=== PATIENT | female | born 1950 | race Caucasian/White ===

== ENCOUNTER 2018-08-16 15:14 | Observation (INO) | payer MEDICARE, OTHER, SELFPAY ==
[2018-08-16 15:17] VITALS: BP 148/88; PULSE 105; RESP 17; TEMP 36.1; O2SAT 99; BMI 24.7
--- NOTE | 2018-08-16 15:29 | EKG12_ITS ---
Test Reason : DIZZINESS Blood Pressure : / mmHG Vent. Rate : 094 BPM Atrial Rate : 094 BPM P-R Int : 134 ms QRS Dur : 072 ms QT Int : 394 ms P-R-T Axes : 052 063 061 degrees QTc Int : 492 ms Sinus rhythm with occasional Premature ventricular complexes Possible Left atrial enlargement Nonspecific ST abnormality Abnormal ECG Confirmed by IDALIA LAI, YVONNE ([id number]), online editor DORYS SCHAFER ([id number]) on 08/19/2018 3:11:22 PM Referred By: Confirmed By:YVONNE FRIEDMAN MD
--- NOTE | 2018-08-16 15:29 | CT_ITS ---
STUDY: CT BRAIN WITHOUT CONTRAST REASON FOR EXAM: Female, 68 years old. Dizziness and sudden onset headache RADIATION DOSAGE (If Supplied By Facility): CTDIvol = ( 60.81 ) mGy, DLP = ( 1176.33 ) mGycm TECHNIQUE: Transaxial CT imaging of the brain was performed without administration of intravenous contrast material. Individualized dose optimization techniques were used for this CT. COMPARISON: None. FINDINGS: Normal soft tissue structures. Normal calvarium. There is mild cerebral atrophy with widening of the extra-axial spaces and ventricular dilatation. There are areas of decreased attenuation within the white matter tracts of the supratentorial brain, consistent with microvascular disease changes. Normal basal ganglia and thalami. Normal brainstem. Normal cerebellum. There is no intracranial hemorrhage. There are no findings of an acute ischemic infarction. Normal visualized paranasal sinuses. CT/Brain/Head without Contrast IMPRESSION: Chronic involutional changes of the brain. Electronically Signed: Nelson Benito DO at 16:15 EDT Tel , Service support ,
--- NOTE | 2018-08-16 15:32 | ED.VISSUMM ---
- ER Visit Summary Date of Service: 08/16/18 Chief Complaint: Dizziness History of Present Illness: The patient is a 68 F presenting with dizziness. She states it started last night. She describes it as a spinning sensation that is worse when she sits or stands. She also has the spinning sensation without change in position. She denies other complaints. She denies numbness or weakness. Denies speech or vision changes. Denies confusion. Denies chest pain or shortness of breath. Denies fever or recent illness. Physical Examination: Vitals are stable. Patient is afebrile. Alert no acute distress. HEENT exam is unremarkable. Neck is supple. Lungs are clear and equal bilaterally. Heart is regular rate and rhythm. Abdomen is soft nontender nondistended. Extremities are unremarkable. Skin is warm and dry. No focal neurologic deficit. NIH 0 Remainder of exam is unremarkable. Emergency Department Course and Treatment: Patient was given Valium p.o. EKG is sinus with PVCs rate of 94. CBC, chemistries unremarkable other than potassium 3.4. Troponin is negative. CT head shows chronic changes. Patient continues to have vertigo in the ED. She attempted to ambulate to the bathroom and had to hold onto a wall to avoid falling. Discussed with the hospitalist for observation. Disposition: Observation Impression: Vertigo This note was generated with [employer] dictation software. It may contain incorrect words, spelling, and punctuation that were not noted in review of the chart prior to signing ED Disposition - Plan for ED Patient: Chief Complaint: Dizziness Referrals: Enrique Fischer III, MD [Primary Care Provider] -
[2018-08-16 15:54] LABS: Absolute Lymphocyte Count 1.63 X10^3/ul (0.83-4.51); Absolute Neutrophil Count 8.1 X10^3/uL (2.0-7.7); Basophil# 0.04 X10^3/uL; Basophil% 0.4 % (0-1); Hematocrit 44.2 % (37-47); Hemoglobin 14.7 g/dl (12.0-15.0); Lymphocyte # 1.63 X10^3/ul (4.0); Lymphocyte % 15.7 % (19-41); Mean Corp Hgb Conc 33.3 g/gl (32-36); Mean Corpuscular Hgb 31.2 pg (27.0-32.0); Mean Corpuscular Volume 93.8 fL (81-99); Monocyte# 0.63 X10^3/uL; Monocyte% 6.1 % (0-10); Neutrophil # 8.08 X10^3/uL (2.7-7.7); Neutrophil % 77.7 % (47-70); Platelet Count 293 K/mm3 (150-450); RBC Distribution Width CV 12.7 % (11.6-14.6); RBC Distribution Width SD 43.6 fl (35.1-43.9); Red Blood Count 4.71 M/mm3 (4.2-5.4); White Blood Count 10.4 K/mm3 (4.4-11.0)
[2018-08-16 15:55] LABS: POSITIVE COUNT NO; POSITIVE DIFFERENTIAL NO; POSITIVE MORPHOLOGY NO
[2018-08-16] MEDS: diazePAM 2 MG Tablet PO (16:01)
[2018-08-16 16:08] LABS: Anion Gap 13 (5-15); BUN 8 mg/dL (7-18); BUN/Creat Ratio 15.9 RATIO (10-20); Calcium,Total 8.8 mg/dL (8.5-10.1); Chloride 103 mmol/L (98-107); EST Glomerular Filtration Rate 130 mL/min (>60); Est Glom Filt Rate - Afr Amer 158 mL/min (>60); Estimated Creatinine Clearance 43.77 ml/min; Glucose 105 mg/dL (74-106); Potassium 3.4 mmol/L (3.5-5.1); Sodium Level 137 mmol/L (136-145)
[2018-08-16 16:30] VITALS: BP 163/86; BP 168/78; BP 170/96; PULSE 100; PULSE 103
[2018-08-16 17:09] VITALS: BP 138/71; PULSE 87; RESP 13; O2SAT 97
--- NOTE | 2018-08-16 17:51 | PCM.HP.STD ---
<Kevin Avilez - Last Filed: 08/16/18 17:51> Problem List (1) BPPV (benign paroxysmal positional vertigo) Status: Acute (2) HTN (hypertension) Status: Chronic History of Present Illness Date of Admission: 08/16/18 Chief Complaint: dizziness The patient is a 68 year old F who presented to the ER with c/o dizziness that began last night. It started suddenly at home before she got into bed, and she felt she should sleep it off. She did get a nights sleep however when she woke up, as soon as she went to move she became dizzy again. She has spent most of the day laying still in bed as this made it less severe. When she should stand up or sit down it would get worse. Turning her head makes it worse. She has no focal weakness, facial droop, slurred speech or headache. She received valium in the ER with only minimal improvement. She has no hx of stroke. Her dad may have had TIAs but she is not sure. She has a hx of HTN. 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 She later had her water tested and it did not have elevated lead. She has 1-2 drinks nightly. [] Past Medical History Past Medical History (Chronic Problems): Chronic Problems HTN (hypertension) (Chronic) Allergies cinnamon Allergy (Verified 08/16/18 15:16) Other lisinopril Allergy (Verified 08/16/18 17:43) cough Home Medications: Ambulatory Orders Medication Instructions Recorded Amlodipine Besylate [Norvasc] 10 mg PO DAILY 08/16/18 Succimer [Dmsa] 5 mg MC MOWEFR 08/16/18 Thyroid Pill 2 gm PO DAILY 08/16/18 traZODone [Desyrel] 25 - 50 mg PO QHS PRN 08/16/18 Surgical History: - - blepharoplasty, neck lift. 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 Drugs: None Review of Systems Constitutional: Denies: Chills, Fever, Weight Change HEENT: Reports: -. Denies: Head Aches, Sinus Congestion, Sinus Drainage Cardiovascular: Denies: Chest Pain, Palpitations Respiratory: Denies: Cough, Shortness of breath at rest, Sputum production Gastrointestinal: Denies: Abdominal Pain, Nausea, Vomiting Genitourinary: Denies: Dysuria Musculoskeletal: Denies: Joint Pain, Joint Tenderness Skin: Denies: Rash, Wounds Neurological: Reports: - - vertigo. Denies: Focal weakness, Numbness, Tingling Psychiatric: Denies: Anxiety, Depression, Homicidal Ideations, Suicidal Ideations Hematologic/ Lymphatic: Denies: Easy Bruising, Easy Bleeding VTE Information - Inpt Only VTE Present on Admission: No VTE Mechan Device Prophylaxis: None VTE Pharm Prophylaxis ordered?: Yes Patient Problems: Active and Suspected Problems BPPV (benign paroxysmal positional vertigo) (Acute) - Physical Exam General: Alert, Oriented x3, Cooperative HEENT: Atraumatic, PERRLA, EOMI, Normocephalic, - - Left gaze lateral nystagmus Neck: Supple, No JVD, Negative Carotid Bruits Lungs: Clear to auscultation, Normal air movement Cardiovascular: Regular rate, No murmurs Abdomen: Bowel Sounds Present, Soft, Non Tender Extremities: No edema, Capillary Refill Less than 3 Seconds Skin: No rashes, No breakdown Musculoskeletal: No Tenderness to Palpation of Joints or Extremities Neurological: Cranial nerves II-XII grossly intact Psych/Mental Status: Normal Affect, Appropriate, Alert and oriented to time, place, person, mood and affect Vital Signs Temp Pulse Resp BP Pulse Ox 96.9 F L 87 13 138/71 H 97 08/16/18 15:17 08/16/18 17:09 08/16/18 17:09 08/16/18 17:09 08/16/18 17:09 Oxygen Delivery Method Room Air Weight: 135 lb 9.349 oz Body Mass Index (BMI) 24.7 Laboratory Tests Past 24 Hrs 08/16/18 08/16/18 15:40 15:40 WBC 10.4 RBC 4.71 Hgb 14.7 Hct 44.2 MCV 93.8 MCH 31.2 MCHC 33.3 RDW 12.7 RDW Differential 43.6 Plt Count 293 MPV 10.0 Immature Gran % (Auto) 0.100 Neut % (Auto) 77.7 H Lymph % (Auto) 15.7 L Wilkinson % (Auto) 6.1 Eos % (Auto) 0.0 Baso % (Auto) 0.4 Absolute Neuts (auto) 8.1 H Absolute Lymphs (auto) 1.63 Total Counted Not Reportable Sodium 137 Potassium 3.4 L Chloride 103 Carbon Dioxide 21.0 Anion Gap 13 BUN 8 Creatinine 0.50 L Estim Creat Clear Calc 43.77 Est GFR (MDRD) Af Amer 158 Est GFR (MDRD) Non-Af 130 BUN/Creatinine Ratio 15.9 Glucose 105 Calcium 8.8 Troponin I < 0.015 Assessment/Plan All Active Problems BPPV (benign paroxysmal positional vertigo) (Acute) 1. Vertigo - likely BPPV. MRI brain MRI head and neck to rule out posterior infarct. Possible fm hx TIAs with father. Hx HTN. No hx vertigo. Continue meclizine and valium prn. Vestibular therapy. 2. HTN - norvasc 3. ? Lead poisoning - per hx, takes DMSA since 1 month ago - her homeopath diagnosed lead poisoning via a hair sample that showed high aluminum and lead levels. Her water was tested and did not have high lead levels. This supplement will be held while she is here. DVT ppx: lovenox DC planning: Likely home tomorrow, This patient was seen by Kevin Avilez PA-C under the supervision of Doctor Koko. <Bam Sutherland F - Last Filed: 08/16/18 18:29> History of Present Illness The patient is a 68 year old F [] Past Medical History Allergies cinnamon Allergy (Verified 08/16/18 15:16) Other lisinopril Allergy (Verified 08/16/18 17:43) cough - Physical Exam Vital Signs Temp Pulse Resp BP Pulse Ox 98.6 F 91 18 159/75 H 100 08/16/18 17:53 08/16/18 17:53 08/16/18 17:53 08/16/18 17:53 08/16/18 17:53 Oxygen Delivery Method Room Air Weight: 131 lb 14.4 oz Body Mass Index (BMI) 24.1 Laboratory Tests Past 24 Hrs 08/16/18 08/16/18 15:40 15:40 WBC 10.4 RBC 4.71 Hgb 14.7 Hct 44.2 MCV 93.8 MCH 31.2 MCHC 33.3 RDW 12.7 RDW Differential 43.6 Plt Count 293 MPV 10.0 Immature Gran % (Auto) 0.100 Neut % (Auto) 77.7 H Lymph % (Auto) 15.7 L Wilkinson % (Auto) 6.1 Eos % (Auto) 0.0 Baso % (Auto) 0.4 Absolute Neuts (auto) 8.1 H Absolute Lymphs (auto) 1.63 Total Counted Not Reportable Sodium 137 Potassium 3.4 L Chloride 103 Carbon Dioxide 21.0 Anion Gap 13 BUN 8 Creatinine 0.50 L Estim Creat Clear Calc 43.77 Est GFR (MDRD) Af Amer 158 Est GFR (MDRD) Non-Af 130 BUN/Creatinine Ratio 15.9 Glucose 105 Calcium 8.8 Troponin I < 0.015 Code Visit Addendum: Dr. Sutherland I personally examined the patient and reviewed the chart. I agree with the above. 68-year-old female with a past medical history significant for hypertension presents to the hospital with a little over 24-hour period of dizziness. She states that she started feeling dizzy last night whenever she would turn her head. It did not matter which direction she turned her head she would just have dizziness where she felt that everything was spinning. She denies any tinnitus, recent upper respiratory infection, or loss of hearing. I was able to perform a modified Orient-Hallpike and did not have any nystagmus in either direction. I was able to get her out of bed and I did walk her around the entire nursing unit and she did not have any episodes of dizziness or difficulty with a walking. On her neuro exam she was not ataxic, Romberg was negative. Can evaluate in the morning after some IV fluids and if she continues to be dizzy can obtain an MRI at that point to further rule out any posterior circulation issues. 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 She states that her blood and hair samples were taken to a [facility] lab in the area. Her water did test normal for lead. We will obtain a CBC in the morning hopefully there will be a peripheral smear. OBSV E&M: 30808 Initial observation care L3
[2018-08-16 17:52] VITALS: BMI 24.1
[2018-08-16 17:53] VITALS: BP 159/75; PULSE 91; RESP 18; TEMP 37; O2SAT 100
[2018-08-16 18:06] VITALS: BMI 24.1
[2018-08-16] MEDS: 0.9% Normal Saline 1,000 ML 100 ML IV (18:41)
[2018-08-16] MEDS: Meclizine HCl 25 MG Tablet PO (19:48)
[2018-08-16] MEDS: amLODIPine 10 MG Tablet PO (19:48)
[2018-08-16 19:51] VITALS: BP 127/69; PULSE 84; RESP 16; TEMP 36.7; O2SAT 97
[2018-08-16] MEDS: traZODone 50 MG Tablet PO (23:53)
[2018-08-17] VITALS: BP 124/70; PULSE 77; RESP 16; TEMP 36.7; O2SAT 96
[2018-08-17] MEDS: 0.9% Normal Saline 1,000 ML 100 ML IV (04:20)
[2018-08-17] MEDS: 0.9% NaCl Peripheral Flush Adult/Peds IV (05:13)
[2018-08-17 05:15] VITALS: BP 129/78; PULSE 78; RESP 16; TEMP 36.9; O2SAT 99
[2018-08-17 08:17] LABS: Absolute Lymphocyte Count 2.27 X10^3/ul (0.83-4.51); Absolute Neutrophil Count 4.6 X10^3/uL (2.0-7.7); Basophil# 0.04 X10^3/uL; Basophil% 0.5 % (0-1); Eosinophil# 0.06 X10^3/uL; Eosinophils% 0.8 % (0-5); Hematocrit 41.8 % (37-47); Hemoglobin 13.5 g/dl (12.0-15.0); Lymphocyte # 2.27 X10^3/ul (4.0); Mean Corp Hgb Conc 32.3 g/gl (32-36); Mean Corpuscular Volume 95.9 fL (81-99); Monocyte% 11.5 % (0-10); Neutrophil # 4.56 X10^3/uL (2.7-7.7); Neutrophil % 58.2 % (47-70); Platelet Count 259 K/mm3 (150-450); RBC Distribution Width SD 45.2 fl (35.1-43.9); Red Blood Count 4.36 M/mm3 (4.2-5.4); White Blood Count 7.8 K/mm3 (4.4-11.0)
[2018-08-17 08:18] LABS: POSITIVE COUNT NO; POSITIVE DIFFERENTIAL NO; POSITIVE MORPHOLOGY NO
[2018-08-17 08:44] LABS: Anion Gap 9 (5-15); BUN 6 mg/dL (7-18); BUN/Creat Ratio 13.6 RATIO (10-20); Calcium,Total 8.5 mg/dL (8.5-10.1); Chloride 110 mmol/L (98-107); Creatinine, Serum 0.44 mg/dL (0.55-1.02); EST Glomerular Filtration Rate 151 mL/min (>60); Est Glom Filt Rate - Afr Amer 183 mL/min (>60); Estimated Creatinine Clearance 43.77 ml/min; Glucose 106 mg/dL (74-106); Potassium 3.8 mmol/L (3.5-5.1); Sodium Level 142 mmol/L (136-145)
[2018-08-17 08:45] VITALS: BP 105/61; PULSE 83; RESP 14; TEMP 36.9; O2SAT 96
[2018-08-17] MEDS: amLODIPine 10 MG Tablet PO (08:51)
[2018-08-17] MEDS: Meclizine HCl 25 MG Tablet PO ×2 (08:51→16:47)
--- NOTE | 2018-08-17 09:35 | MRI_ITS ---
STUDY: MRA OF THE HEAD WITHOUT CONTRAST REASON FOR EXAM: Female, 68 years old. Vertigo since yesterday morning. TECHNIQUE: 3-D lzxo-cs-dueolv (TOF) imaging was performed with MIPs. The study was performed unenhanced. COMPARISON: Prior comparable comparison studies are not available for review at this time. FINDINGS: Normal bilateral petrous carotid arteries. Normal right cavernous carotid artery with a normal supraclinoid bifurcation. Normal left cavernous carotid artery with a normal supraclinoid bifurcation. Normal right A1 segments of the anterior cerebral artery. Normal left A1 segments of the anterior cerebral artery. Normal intact anterior communicating artery (ACOM). Normal bilateral A2 segments of the anterior cerebral arteries. Normal right M1 and M2 segments of the middle cerebral arteries, with a normal M1 bifurcation. Normal left M1 and M2 segments of the middle cerebral arteries, with a normal M1 bifurcation. There is a persistent origin of the right posterior cerebral artery with absence of the P1 segment of the right posterior cerebral artery. There is non-visualization of the left posterior communicating artery (PCOM). Normal bilateral vertebral arteries. Normal basilar artery with a normal basilar bifurcation. The right superior cerebellar artery is visualized. There appears to be occlusion and/or possible thrombosis of the left superior cerebellar artery. There is absence of the right P1 segment of the posterior cerebral arteries with a normal left P1 segment. Normal visualized bilateral P2 and P3 segments of the posterior cerebral arteries. There is no demonstrated aneurysm of the resighini of [place]. There are mild involutional changes of the brain. MRI/MRA Head ONLY without Contrast IMPRESSION: 1. Possible thrombosis of the left superior cerebellar artery. The acuity of this finding is uncertain. 2. No MR evidence for aneurysm. Electronically Signed: Mellisa Spence MD at 16:26 EDT , Service support ,
--- NOTE | 2018-08-17 09:35 | MRI_ITS ---
STUDY: MRA NECK WITH AND WITHOUT CONTRAST REASON FOR EXAM: Female, 68 years old. Vertigo since yesterday morning. TECHNIQUE: 3-D hpxi-st-bmfdor (TOF) imaging was performed in an 1.5 T MRI scanner. 6 ml of Gadavist was administered for the contrast enhanced images. COMPARISON: MRA of the head dated August 17, 2018. FINDINGS: RIGHT CAROTID ARTERIES: Normal right common carotid artery (CCA). There is mild atherosclerotic plaque formation with minimal narrowing of the right carotid bulb. Normal origin of the right internal carotid (ICA) artery without a hemodynamically significant stenosis. Normal visualized cervical portion of the right internal carotid artery. Normal origin of the right external carotid artery (ECA). LEFT CAROTID ARTERIES: Normal left common carotid artery (CCA). There is mild atherosclerotic plaque formation with minimal narrowing of the left carotid bulb. Normal origin of the left internal carotid (ICA) artery without a hemodynamically significant stenosis. Normal visualized cervical portion of the left internal carotid artery. Normal origin of the left external carotid artery (ECA). VERTEBRAL ARTERIES: Normal antegrade flow within the bilateral vertebral artery without a hemodynamically significant stenosis. MRI/MRA Neck WITH and W/O Contrast IMPRESSION: No MRA evidence for hemodynamically significant stenosis, thrombosis or dissection. Electronically Signed: Mellisa Spence MD at 16:43 EDT , Service support ,
--- NOTE | 2018-08-17 09:35 | MRI_ITS ---
STUDY: MRI BRAIN WITHOUT CONTRAST REASON FOR EXAM: Female, 68 years old. Vertigo since yesterday. TECHNIQUE: Standardized multiplanar fat and water weighted pulse sequences were obtained. COMPARISON: CT of the head dated August 16, 2018. FINDINGS: There is mild cerebral atrophy with widening of the extra-axial spaces and ventricular dilatation. There are a limited number of small white matter hyperintensities, distributed throughout the deep white matter tracts of the cerebral hemispheres, consistent with mild chronic white matter ischemic changes. There are apparent foci of restricted diffusion within bilateral basal ganglia. This is best seen on diffusion weighted images #15, 16 and 17. The configuration is somewhat unusual for an acute infarct. Bilateral acute infarcts unfortunately cannot be excluded. There are prominent perivascular spaces (PVS) involving the basal ganglia. Normal thalami. There is no extra-axial fluid accumulation. Normal flow voids within the major intracranial circulation suggesting patency by spin echo criteria. Normal sella turcica, pituitary gland, infundibular stalk, optic chiasm and hypothalamus. Normal tectal plate and pineal gland. Normal midbrain, ludmila and medulla. Normal cerebellum. Normal basal cisterns. Normal bilateral temporal bones. Normal bilateral internal auditory canals. No demonstrated orbital abnormality, within the constraints of a routine brain study. Normal visualized paranasal sinuses. Normal calvarium and skull base. Normal visualized soft tissue structures. Normal visualized upper cervical spine. MRI/Brain without Contrast IMPRESSION: 1. Involutional changes of the brain, as described above. 2. Nonspecific foci of apparent restricted diffusion in the basal ganglia. The configuration is unusual for acute infarct and is bilateral. It is possible this is related to artifact. This apparent restricted diffusion could be unrelated to ischemia but secondary to cytotoxic edema. Is there concern for infection, or recent toxic exposure? N.B. : The above information has been verbally conveyed by Mellisa Spence MD to SAMARIA Crocker, on 08/17/2018 16:33:31 (ET). Electronically Signed: Mellisa Spence MD at 16:38 EDT , Service support ,
[2018-08-17 14:40] VITALS: BP 121/69; PULSE 84; RESP 15; TEMP 36.6; O2SAT 97
--- NOTE | 2018-08-17 17:57 | PCM.PROGNOTE ---
<Kevin Avilez - Last Filed: 08/17/18 17:57> Patient Problems: Active and Suspected Problems BPPV (benign paroxysmal positional vertigo) (Acute) Dizziness (Acute) Subjective: Pts dizziness has improved, however has continued throughout the day. She has been up and ambulating throughout the room without assistance. PRN medications are helping. No focal weakness, slurred speech, headache, facial droop. - Physical Exam General: Alert, Oriented x3, Cooperative HEENT: Atraumatic, PERRLA, EOMI, Normocephalic, - - BL nystagmus more prominent with left gaze Neck: Supple, No JVD, Negative Carotid Bruits Lungs: Clear to auscultation, Normal air movement Cardiovascular: Regular rate, No murmurs Abdomen: Bowel Sounds Present, Soft, Non Tender Extremities: No edema, Capillary Refill Less than 3 Seconds Skin: No rashes, No breakdown Musculoskeletal: No Tenderness to Palpation of Joints or Extremities Neurological: Cranial nerves II-XII grossly intact Psych/Mental Status: Normal Affect, Appropriate, Alert and oriented to time, place, person, mood and affect Vital Signs Temp Pulse Resp BP Pulse Ox 97.9 F 84 15 121/69 H 97 08/17/18 14:40 08/17/18 14:40 08/17/18 14:40 08/17/18 14:40 08/17/18 14:40 Oxygen Delivery Method Room Air Weight: 131 lb 14.4 oz Body Mass Index (BMI) 24.1 Intake and Output for Last 24 Hours 08/15/18 08/16/18 08/17/18 23:59 23:59 23:59 Intake Total 1236 / 1236 522 / 522 Output Total 1200 / 1200 250 / 250 Balance 36 / 36 272 / 272 Laboratory Tests Past 24 Hrs 08/17/18 08/17/18 07:45 07:45 WBC 7.8 RBC 4.36 Hgb 13.5 Hct 41.8 MCV 95.9 MCH 31.0 MCHC 32.3 RDW 13.0 RDW Differential 45.2 H Plt Count 259 MPV 10.0 Immature Gran % (Auto) 0.000 Neut % (Auto) 58.2 Lymph % (Auto) 29.0 Alexander % (Auto) 11.5 H Eos % (Auto) 0.8 Baso % (Auto) 0.5 Absolute Neuts (auto) 4.6 Absolute Lymphs (auto) 2.27 Total Counted Not Reportable Sodium 142 Potassium 3.8 Chloride 110 H Carbon Dioxide 23.0 Anion Gap 9 BUN 6 L Creatinine 0.44 L Estim Creat Clear Calc 43.77 Est GFR (MDRD) Af Amer 183 Est GFR (MDRD) Non-Af 151 BUN/Creatinine Ratio 13.6 Glucose 106 Calcium 8.5 Medical Necessity - Tobacco Use Smoking Status: Former smoker Tobacco Use: Cigarettes Assessment/Plan All Active Problems BPPV (benign paroxysmal positional vertigo) (Acute) Dizziness (Acute) 1. Vertigo - Unusual findings on the MRI/A. Results relayed to neuro. Consult placed. Asa/statin started. Continue prn medications as ordered. 2. HTN - norvasc. stable 3. ? Lead poisoning - per hx, takes DMSA for a hair sample that tested positive by her homeopathic dr. She did not have blood lead levels checked. Water was tested and did not have elevated lead. It is unclear if this is a true diagnosis. This medication has been held. DVT ppx: lovenox DC planning: pending neuro consult. This patient was seen by Kevin Avilez PA-C under the supervision of Doctor Doug. <Mariela Camacho E - Last Filed: 08/18/18 11:04> - Physical Exam Vital Signs Temp Pulse Resp BP Pulse Ox 98.6 F 85 16 144/77 H 96 08/17/18 19:50 08/17/18 19:50 08/17/18 19:50 08/17/18 19:50 08/17/18 19:50 Oxygen Delivery Method Room Air Weight: 131 lb 14.4 oz Body Mass Index (BMI) 24.1 Intake and Output for Last 24 Hours 08/15/18 08/16/18 08/17/18 23:59 23:59 23:59 Intake Total 1236 / 1236 1122 / 1122 Output Total 1200 / 1200 250 / 250 Balance 36 / 36 872 / 872 Laboratory Tests Past 24 Hrs 08/17/18 08/17/18 07:45 07:45 WBC 7.8 RBC 4.36 Hgb 13.5 Hct 41.8 MCV 95.9 MCH 31.0 MCHC 32.3 RDW 13.0 RDW Differential 45.2 H Plt Count 259 MPV 10.0 Immature Gran % (Auto) 0.000 Neut % (Auto) 58.2 Lymph % (Auto) 29.0 Alexander % (Auto) 11.5 H Eos % (Auto) 0.8 Baso % (Auto) 0.5 Absolute Neuts (auto) 4.6 Absolute Lymphs (auto) 2.27 Total Counted Not Reportable Sodium 142 Potassium 3.8 Chloride 110 H Carbon Dioxide 23.0 Anion Gap 9 BUN 6 L Creatinine 0.44 L Estim Creat Clear Calc 43.77 Est GFR (MDRD) Af Amer 183 Est GFR (MDRD) Non-Af 151 BUN/Creatinine Ratio 13.6 Glucose 106 Calcium 8.5 Assessment/Plan Hospitalist Note: I am seeing this patient in conjunction with Kevin Avilez. I independently seen and examined the patient. Progress note above, laboratory data and imaging studies reviewed and I concur with the above treatment and workup plan. Today, patient stated that her dizziness improved but still there. She denied associated nausea vomiting. She has no focal weakness. Her vital signs are stable. - Physical Exam General: Alert, Oriented x3, Cooperative, No apparent distress. HEENT: Atraumatic, PERRLA, EOMI. Neck: Supple, No JVD, Negative Carotid Bruits, Trachea Midline, Thyroid Normal. Lungs: Clear to auscultation, Normal air movement, No rhonchi, No wheeze, No rales. Cardiovascular: Regular rate, Regular Rhythm, Normal S1, Normal S2, PMI Normal. Abdomen: Bowel Sounds Present, Soft, Non Tender, Non-Distended, No Hepato-splenomegaly. Extremities: No clubbing, No cyanosis, No edema Skin: No rashes, No breakdown Neurological: Cranial nerves are intact, no focal deficit. She does have nystagmus. Vital Signs are stable. Assessment and plan: #1 vertigo/dizziness: Initially, attributed to BPPV. CT scan brain without acute findings. MRI brain reported as nonspecific foci in the basal ganglia, bilateral, unusual for acute infarct. MRA of the head reported as possible thrombosis of the left superior cerebellar artery according to the radiologist. MRA of the neck was unremarkable. Plan: Start patient on aspirin, statins, neurology consult. #2 other chronic medical problems: Stable, continue current medications as above. This note was generated with [employer] software. It may contain incorrect words, spelling, and punctuation that were not noted in checking the note before signing. Code Visit OBSV E&M: 20061 Subsequent observation care L2
[2018-08-17] MEDS: Aspirin 81 MG TAB.CHEW PO (18:51)
[2018-08-17 19:50] VITALS: BP 144/77; PULSE 85; RESP 16; TEMP 37; O2SAT 96
[2018-08-17] MEDS: Atorvastatin Calcium 80 MG Tablet PO (22:51)
[2018-08-17] MEDS: traZODone 50 MG Tablet PO (22:51)
[2018-08-18 01:16] VITALS: BP 151/84; PULSE 81; RESP 16; TEMP 36.3; O2SAT 100
--- NOTE | 2018-08-18 08:04 | PCM.CONS.GEN ---
Problem List (1) Dizziness Status: Acute Reason for Consult Date of Consultation: 08/18/18 Reason for Consultation: Dizziness History of Present Illness: The patient is a 68 year old CF with PMH HTN admitted with dizziness. Per patient she started having dizziness around night (08/15/18), worse the next day, worse with moving her head, only improved with laying down and eyes closed, associated with vomiting, but denies any diplopia, speech disturbances, ARBOLEDA, focal motor weakness or sensory loss with the dizziness. Per patient following admission and treating with meclizine her dizziness has improved a lot. Per patient she had h/o chronic hair loss for which she was going to a naturopathy doctor who tested her hair and found that she has high lead and aluminium and started her on DMSA (succimer) which she has been taking. She also complaints of some hearing loss, but denies any tinnitus. She denies any chest pain, fever, or sick contacts. MRI brain done on admission read by Dr. Mellisa Spence reported to show Nonspecific foci of apparent restricted diffusion in the basal ganglia. The configuration is unusual for acute infarct and is bilateral. It is possible this is related to artifact. but on my review MRI brain images appears to be unremarkable. MRA head/neck again read by Dr. 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 The acuity of this finding is uncertain. [] Past Medical History Past Medical History (Chronic Problems): Chronic Problems HTN (hypertension) (Chronic) Allergies cinnamon Allergy (Verified 08/16/18 15:16) Other lisinopril Allergy (Verified 08/16/18 17:43) cough Home Medications: Ambulatory Orders Medication Instructions Recorded Amlodipine Besylate [Norvasc] 10 mg PO DAILY 08/16/18 Succimer [Dmsa] 5 mg [facility] MOWEFR 08/16/18 Thyroid Pill 2 gm PO DAILY 08/16/18 traZODone [Desyrel] 25 - 50 mg PO QHS PRN 08/16/18 Surgical History: - - blepharoplasty, neck lift. 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 Drugs: None Review of Systems Constitutional: Reports: - - complete ROS negative except as documented in HPI Patient Problems: Active and Suspected Problems BPPV (benign paroxysmal positional vertigo) (Acute) Dizziness (Acute) - Physical Exam General: Alert HEENT: Normocephalic Neck: Supple Lungs: Normal air movement Cardiovascular: Normal S1, Normal S2 Abdomen: Bowel Sounds Present Extremities: No cyanosis Musculoskeletal: No Tenderness to Palpation of Joints or Extremities Neurological: - - consious, alert, AoAx3, CN 2-12 grossly intact except bilateral gaze evoked nystagmus, power 5/5 all 4 extremities, Reflexes ++ B/L B/S/T/K/A, gait deferred, no sensory loss, no cerebellar signs on examination at present. Psych/Mental Status: Normal Affect Vital Signs Temp Pulse Resp BP Pulse Ox 97.4 F L 81 16 151/84 H 100 08/18/18 01:16 EST 08/18/18 01:16 EST 08/18/18 01:16 EST 08/18/18 01:16 EST 08/18/18 01:16 EST Oxygen Delivery Method Room Air Weight: 59.829 kg Body Mass Index (BMI) 24.1 Intake and Output for Last 24 Hours 08/16/18 08/17/18 08/18/18 23:59 23:59 22:59 Intake Total 1236 / 1236 1122 / 1122 Output Total 1200 / 1200 250 / 250 Balance 36 / 36 872 / 872 Laboratory Tests Past 24 Hrs 08/18/18 08/18/18 05:20 05:20 Arsenic Pending Lead Pending Pending Mercury Pending Assessment/Plan All Active Problems BPPV (benign paroxysmal positional vertigo) (Acute) Dizziness (Acute) The patient is a 68 year old CF with PMH HTN admitted with dizziness. Per patient she started having dizziness around night (08/15/18), worse the next day, worse with moving her head, only improved with laying down and eyes closed, associated with vomiting, had some imbalance due to dizziness but denies any diplopia, speech disturbances, ARBOLEDA, focal motor weakness, sensory loss or falls with the dizziness. Per patient following admission and treating with meclizine her dizziness has improved a lot. Per patient she had h/o chronic hair loss for which she was going to a naturopathy doctor who tested her hair and found that she has high lead and aluminium and started her on DMSA (succimer) which she has been taking. She also complaints of some hearing loss, but denies any tinnitus. She denies any chest pain, fever, or sick contacts. MRI brain done on admission read by Dr. Mellisa Spence reported to show Nonspecific foci of apparent restricted diffusion in the basal ganglia. The configuration is unusual for acute infarct and is bilateral. It is possible this is related to artifact. but on my review MRI brain images appears to be unremarkable. MRA head/neck again read by Dr. 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 The acuity of this finding is uncertain Impression Dizziness-likely peripheral etiology Plan -MRI brain images reviewed- findings likely artifactual on my review, have tried to reach Dr. Mellisa Spence to discuss the same but was not successful -MRA head/neck images reviewed-less likely to be thrombosis of left superior cerebellar artery, but will check CTA head/neck -Recommend repeat MRI brain w/o contrast in 6 weeks -On ASA -Check lead level, and heavy metal screen -Vestibular therapy -ENT consult -Orthostatic vitals negative per documentation -GI/DVT prophylaxis -Fall precautions -Further medical management per primary team. -Follow up with Neurology as outpatient in 4-6 weeks. -Please call with questions if any -Thank you for allowing us to participate in patient's care and management Code Visit Inpatient E&M: [id number] Init Hosp L3
[2018-08-18] MEDS: Aspirin 81 MG TAB.CHEW PO (08:10)
[2018-08-18 08:12] VITALS: BP 123/63; PULSE 83; RESP 16; TEMP 37.2; O2SAT 95
[2018-08-18] MEDS: Meclizine HCl 25 MG Tablet PO ×2 (08:12→13:00)
--- NOTE | 2018-08-18 08:13 | CON.PCM_ITS ---
Problem List (1) Dizziness Status: Acute Reason for Consult Date of Consultation: 08/18/18 Reason for Consultation: Dizziness History of Present Illness: The patient is a 68 year old CF with PMH HTN admitted with dizziness. Per p atient she started having dizziness around night (08/15/18), worse the next day, worse with moving her head, only improved with laying down and eyes closed, associated with vomiting, but denies any diplopia, speech disturbances, ARBOLEDA, focal motor weakness or sensory loss with the dizziness. Per patient following admission and treating with meclizine her dizziness has improved a lot. Per patient she had h/o chronic hair loss for which she was going to a naturopathy doctor who tested her hair and found that she has high lead and aluminium and started her on DMSA (succimer) which she has been taking. She also complaints of some hearing loss, but denies any tinnitus. She denies any chest pain, fever, or sick contacts. MRI brain done on admission read by Dr. Mellisa Spence reported to show Nonspecific foci of apparent restricted diffusion in the basal ganglia. The configuration is unusual for acute infarct and is bilateral. It is possible this is related to artifact. but on my review MRI brain images appears to be unremarkable. MRA head/neck again read by Dr. 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 The acuity of this finding is uncertain. [] Past Medical History Past Medical History (Chronic Problems): Chronic Problems HTN (hypertension) (Chronic) Allergies cinnamon Allergy (Verified 08/16/18 15:16) Other lisinopril Allergy (Verified 08/16/18 17:43) cough Home Medications: Ambulatory Orders Medication Instructions Recorded Amlodipine Besylate [Norvasc] 10 mg PO DAILY 08/16/18 Succimer [Dmsa] 5 mg MC MOWEFR 08/16/18 Thyroid Pill 2 gm PO DAILY 08/16/18 traZODone [Desyrel] 25 - 50 mg PO QHS PRN 08/16/18 Surgical History: - - blepharoplasty, neck lift. 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 Drugs: None Review of Systems Constitutional: Reports: - - complete ROS negative except as documented in HPI Patient Problems: Active and Suspected Problems BPPV (benign paroxysmal positional vertigo) (Acute) Dizziness (Acute) - Physical Exam General: Alert HEENT: Normocephalic Neck: Supple Lungs: Normal air movement Cardiovascular: Normal S1, Normal S2 Abdomen: Bowel Sounds Present Extremities: No cyanosis Musculoskeletal: No Tenderness to Palpation of Joints or Extremities Neurological: - - consious, alert, AoAx3, CN 2-12 grossly intact except bilateral gaze evoked nystagmus, power 5/5 all 4 extremities, Reflexes ++ B/L B/S/T/K/A, gait deferred, no sensory loss, no cerebellar signs on examination at present. Psych/Mental Status: Normal Affect Vital Signs Temp Pulse Resp BP Pulse Ox 97.4 F L 81 16 151/84 H 100 08/18/18 01:16 EST 08/18/18 01:16 EST 08/18/18 01:16 EST 08/18/18 01:16 EST 08/18/18 01:16 EST Oxygen Delivery Method Room Air Weight: 59.829 kg Body Mass Index (BMI) 24.1 Intake and Output for Last 24 Hours 08/16/18 08/17/18 08/18/18 23:59 23:59 22:59 Intake Total 1236 / 1236 1122 / 1122 Output Total 1200 / 1200 250 / 250 Balance 36 / 36 872 / 872 Laboratory Tests Past 24 Hrs 08/18/18 08/18/18 05:20 05:20 Arsenic Pending Lead Pending Pending Mercury Pending Assessment/Plan All Active Problems BPPV (benign paroxysmal positional vertigo) (Acute) Dizziness (Acute) The patient is a 68 year old CF with PMH HTN admitted with dizziness. Per patien t she started having dizziness around night (08/15/18), worse the next day, worse with moving her head, only improved with laying down and eyes closed, associated with vomiting, had some imbalance due to dizziness but denies any diplopia, speech disturbances, ARBOLEDA, focal motor weakness, sensory loss or falls with the dizziness. Per patient following admission and treating with meclizine her dizziness has improved a lot. Per patient she had h/o chronic hair loss for which she was going to a naturopathy doctor who tested her hair and found that she has high lead and aluminium and started her on DMSA (succimer) which she has been taking. She also complaints of some hearing loss, but denies any tinnitus. She denies any chest pain, fever, or sick contacts. MRI brain done on admission read by Dr. Mellisa Spence reported to show Nonspecific foci of apparent restricted diffusion in the basal ganglia. The configuration is unusual for acute infarct and is bilateral. It is possible this is related to artifact. but on my review MRI brain images appears to be unremarkable. MRA head/neck again read by Dr. 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 The acuity of this finding is uncertain Impression Dizziness-likely peripheral etiology Plan -MRI brain images reviewed- findings likely artifactual on my review, have tried to reach Dr. Mellisa Spence to discuss the same but was not successful -MRA head/neck images reviewed-less likely to be thrombosis of left superior cerebellar artery, but will check CTA head/neck -Recommend repeat MRI brain w/o contrast in 6 weeks -On ASA -Check lead level, and heavy metal screen -Vestibular therapy -ENT consult -Orthostatic vitals negative per documentation -GI/DVT prophylaxis -Fall precautions -Further medical management per primary team. -Follow up with Neurology as outpatient in 4-6 weeks. -Please call with questions if any -Thank you for allowing us to participate in patient's care and management Code Visit Inpatient E&M: [id number] Init Hosp L3
--- NOTE | 2018-08-18 08:27 | CT_ITS ---
STUDY: CTA NECK WITH CONTRAST REASON FOR EXAM: Female, 68 years old. DIZZINESS, POSSIBLE THROMBIS SUP. CEREBELLAR,ARTERY RADIATION DOSAGE (If Supplied By Facility): CTDIvol = ( 26.30 ) mGy, DLP = ( 1314.62 ) mGycm TECHNIQUE: CT angiography with multi-detector data acquisition was performed from the aortic arch to the skull base following intravenous administration of 100ML ml of Isovue 370 contrast. MIP images were reconstructed from the axial data set. Post-processing of the angiographic images was performed, with multiplanar reformation and 3D reconstruction. Individualized dose optimization techniques were used for this CT. COMPARISON: MRA neck 08/17/2018 FINDINGS: AORTIC ARCH: Normal visualized aortic arch. RIGHT CAROTID ARTERIES: Normal right common carotid artery (CCA). There is moderate atherosclerotic plaque formation with moderate narrowing of the carotid bulb. There is mild atherosclerotic plaque formation of the origin of the right internal carotid artery with less than 50% cross sectional diameter stenosis. Normal visualized cervical portion of the right internal carotid artery. Normal origin of the right external carotid artery (ECA). LEFT CAROTID ARTERIES: Normal left common carotid artery (CCA). There is moderate atherosclerotic plaque formation with moderate narrowing of the carotid bulb. There is moderate atherosclerotic plaque formation of the origin of the left internal carotid artery with an estimated stenosis of 50-69% stenosis. Normal visualized cervical portion of the left internal carotid artery. Normal origin of the left external carotid artery (ECA). VERTEBRAL ARTERIES: Normal bilateral vertebral arteries. CT/CTA Neck W/WO Contrast IMPRESSION: 50-69% stenosis of the left ICA. Less than 50% stenosis of the right ICA. Electronically Signed: Azra Whitfield MD at 11:15 EST Tel , Service support ,
--- NOTE | 2018-08-18 08:27 | CT_ITS ---
STUDY: CTA OF THE BRAIN REASON FOR EXAM: Female, 68 years old. Dizziness TECHNIQUE: CT angiography was performed with a multi-detector CT scanner. Data acquisition was obtained from the skull base through the vertex following intravenous administration of 100 ml of Isovue 370. MIP images were reconstructed from the axial data set. Post-processing of the angiographic images was performed, with multiplanar reformation and 3D reconstruction. Individualized dose optimization techniques were used for this CT. COMPARISON: None. FINDINGS: Normal bilateral petrous carotid arteries. Normal right cavernous carotid artery with a normal supraclinoid bifurcation. Normal left cavernous carotid artery with a normal supraclinoid bifurcation. Normal right A1 segments of the anterior cerebral artery. Normal left A1 segments of the anterior cerebral artery. Normal intact anterior communicating artery (ACOM). Normal bilateral A2 segments of the anterior cerebral arteries. Normal right M1 and M2 segments of the middle cerebral arteries, with a normal M1 bifurcation. Normal left M1 and M2 segments of the middle cerebral arteries, with a normal M1 bifurcation. Normal right posterior communicating artery (PCOM). Nonvisualization of the left posterior communicating artery (PCOM). Normal bilateral vertebral arteries. Normal basilar artery with a normal basilar bifurcation. The visualized bilateral superior cerebellar (SCA) arteries are normal. Normal left posterior cerebral artery. Nonvisualization of the proximal segment of the right posterior cerebral artery. There is no demonstrated aneurysm of the [place] of [place]. There is no demonstrated abnormality of the visualized brain. CT/CTA Head W/WO Contrast IMPRESSION: No demonstrated aneurysm or hemodynamically significant stenosis. Nonvisualization of the proximal segment of the right posterior cerebral artery. Patent right posterior communicating artery supplies the right posterior cerebral artery. Nonvisualization of the left posterior commuting artery. Electronically Signed: Cash Carrion DO at 11:31 EST Tel [phone], Service support ,
[2018-08-18] MEDS: amLODIPine 10 MG Tablet PO (10:51)
--- NOTE | 2018-08-18 12:18 | DCINST_ITS ---
- Discharge Diagnoses Current Active Problems: Current Active and Chronic Problems HTN (hypertension) (Chronic) BPPV (benign paroxysmal positional vertigo) (Acute) Dizziness (Acute) You will use the following diet at home:: Cardiac Your food should be the consistency of: Regular Your liquids should be the consistency of: Regular/Thin Discharge Activity: Return to Normal Activity Additional Instructions: Call your PCP to find out the results of your blood lead and heavy metal tests. Allergies/Adverse Reactions: Allergies cinnamon Allergy (Verified 08/16/18 15:16) Other lisinopril Allergy (Verified 08/16/18 17:43) cough Medications to take at Discharge Amlodipine Besylate [Norvasc] 10 mg PO DAILY 08/16/18 Thyroid Pill 2 gm PO DAILY 08/16/18 traZODone [Desyrel] 25 - 50 mg PO QHS PRN 08/16/18 Aspirin [Aspirin, Baby] 81 mg PO DAILY@0800 tab.chew 08/18/18 Atorvastatin Calcium 40 mg PO DAILY #30 tab 08/18/18 Meclizine HCl [Antivert] 25 mg PO TID PRN PRN #21 tab 08/18/18 The following prescriptions were given: Atorvastatin Calcium 40 mg PO DAILY #30 tab Meclizine HCl [Antivert] 25 mg PO TID PRN PRN #21 tab PRN Reason: Dizziness Primary Care Physician: Enrique Fischer III, MD [Primary Care Provider] - Please follow up with your Primary Care Physician in: 1-2 weeks Test Results: Test results from this visit will be discussed in further detail at your follow- up appointment, if applicable. Please Follow Up With: Evelin Mcghee MD When: 4-6 weeks Please Follow Up With: Bernabe Fischer MD - Carotid stenosis When: 2 weeks Proposed Discharge Date: 08/18/18
--- NOTE | 2018-08-18 12:18 | PCM.DC.SUM ---
<Kevin Avilez - Last Filed: 08/18/18 12:26> Discharge Date and Diagnosis - Problem List Patient Problems: Active and Suspected Problems BPPV (benign paroxysmal positional vertigo) (Acute) Dizziness (Acute) Date of Admission: 08/16/18 Date of Discharge: 08/18/18 - Primary Discharge Diagnosis Active and Suspected Problems BPPV (benign paroxysmal positional vertigo) (Acute) Left ICA carotid stenosis HLD HTN Questionable Lead poisoning - Secondary Discharge Diagnosis Chronic Problems HTN (hypertension) (Chronic) Hospital Course and Treatment Imaging Results: 08/18/18 08:27 CTA Head W/WO Contrast [CT] Urgent CTA Neck W/WO Contrast [CT] Urgent Consults: Taz - neuro Operations: None Procedures: None Summary of Care Provided: Hospital course: The patient is a 68 year old F with pmhx of HTN, 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 It would occur with position changes and was better at rest with her eyes closed. She had a negative CT brain. She was admitted for vertigo and started on valium. She was significantly improved the following day but continued to have BL nystagmus L>R. MRI of the brainand MRA head and neck were obtained. There were some unusual findings as above and neuro was consulted to clarify. Lead and heavy metal blood levels were obtained and the results are pending at this time. She then underwent CTA head and neck. No significant thrombosis was found. She did have left ICA 50-69% stenosis and <50% stenosis right ICA. She was advised to take asa and statin. She was hesitant to start atorvastatin stating that she heard it hurts your liver. She denied a hx of taking it and having cramps or other issues with it. She was agreeable to trying a lower dose of it. She was discharged home in stable condition. Please follow up with PCP in 1-2 weeks. Follow up with Vascular Surgery 2 weeks. Follow up with Neuro 4-6 weeks. She needs a repeat MRI brain in 4-6 weeks. This patient was seen by Kevin Avilez PA-C under the supervision of Doctor Camacho. [] Patient Problems: Active and Suspected Problems BPPV (benign paroxysmal positional vertigo) (Acute) Dizziness (Acute) - Physical Exam General: Alert, Oriented x3, Cooperative HEENT: Atraumatic, PERRLA, EOMI, Normocephalic, - - Bilateral nystagmus left greater than right Neck: Supple, No JVD, Negative Carotid Bruits Lungs: Clear to auscultation, Normal air movement Cardiovascular: Regular rate, No murmurs Abdomen: Bowel Sounds Present, Soft, Non Tender Extremities: No edema, Capillary Refill Less than 3 Seconds Skin: No rashes, No breakdown Musculoskeletal: No Tenderness to Palpation of Joints or Extremities Neurological: Cranial nerves II-XII grossly intact Psych/Mental Status: Normal Affect, Appropriate, Alert and oriented to time, place, person, mood and affect Vital Signs Temp Pulse Resp BP Pulse Ox 98.9 F 83 16 123/63 H 95 08/18/18 08:12 08/18/18 08:12 08/18/18 08:12 08/18/18 08:12 08/18/18 08:12 Oxygen Delivery Method Room Air Weight: 131 lb 14.4 oz Body Mass Index (BMI) 24.1 Intake and Output for Last 24 Hours 08/16/18 08/17/18 08/18/18 23:59 23:59 22:59 Intake Total 1236 / 1236 1122 / 1122 Output Total 1200 / 1200 250 / 250 Balance 36 / 36 872 / 872 Laboratory Tests Past 24 Hrs 08/18/18 08/18/18 05:20 05:20 Arsenic Pending Lead Pending Pending Mercury Pending Discharge Diet: Low fat/ Low Cholesterol, 4000 mg Sodium Diet Discharge Activity: Return to Normal Activity Home Medications: Medications to take at Discharge Amlodipine Besylate [Norvasc] 10 mg PO DAILY 08/16/18 Thyroid Pill 2 gm PO DAILY 08/16/18 traZODone [Desyrel] 25 - 50 mg PO QHS PRN 08/16/18 Aspirin [Aspirin, Baby] 81 mg PO DAILY@0800 tab.chew 08/18/18 Atorvastatin Calcium 40 mg PO DAILY #30 tab 08/18/18 Meclizine HCl [Antivert] 25 mg PO TID PRN PRN #21 tab 08/18/18 Following Prescrptions Were Given to Patient: Atorvastatin Calcium 40 mg PO DAILY #30 tab Meclizine HCl [Antivert] 25 mg PO TID PRN PRN #21 tab PRN Reason: Dizziness Primary Care Physician: Enrique Fischer III, MD [Primary Care Provider] - Please follow up with your Primary Care Physician in: 1-2 weeks Please Follow Up With: Evelin Mcghee MD When: 4-6 weeks Please Follow Up With: Bernabe Fischer MD - Carotid stenosis When: 2 weeks Disposition: Home Minutes spent on discharge:: 35 Patient Condition:: Stable Medical Necessity - Tobacco Use Smoking Status: Former smoker Tobacco Use: Cigarettes Meaningful Use Info Meaningful Use Diagnoses (Choose all that apply): None applicable <Mariela Camacho E - Last Filed: 08/18/18 13:05> Discharge Date and Diagnosis - Primary Discharge Diagnosis Active and Suspected Problems #1 probable BPPV (benign paroxysmal positional vertigo) (Acute) #2 50-69% stenosis of the left internal carotid artery, less than 50% stenosis of the right internal carotid artery - Secondary Discharge Diagnosis Chronic Problems HTN (hypertension) (Chronic) Hospital Course and Treatment Imaging Results: 08/18/18 08:27 CTA Head W/WO Contrast [CT] Urgent CTA Neck W/WO Contrast [CT] Urgent Clinical Impression(s) from Imaging Studies Brain CT 08/16/18 15:29 IMPRESSION: Chronic involutional changes of the brain. Electronically Signed: Nelson Benito DO at 16:15 EDT Tel , Service support , Brain MRI 08/17/18 09:35 IMPRESSION: 1. Involutional changes of the brain, as described above. 2. Nonspecific foci of apparent restricted diffusion in the basal ganglia. The configuration is unusual for acute infarct and is bilateral. It is possible this is related to artifact. This apparent restricted diffusion could be unrelated to ischemia but secondary to cytotoxic edema. Is there concern for infection, or recent toxic exposure? N.B. : The above information has been verbally conveyed by Mellisa Spence MD to SAMARIA Crocker, on 08/17/2018 16:33:31 (ET). Electronically Signed: Mellisa Spence MD at 16:38 EDT , Service support , Head MRA 08/17/18 09:35 IMPRESSION: 1. Possible thrombosis of the left superior cerebellar artery. The acuity of this finding is uncertain. 2. No MR evidence for aneurysm. Electronically Signed: Mellisa Spence MD at 16:26 EDT , Service support , Neck MRA 08/17/18 09:35 IMPRESSION: No MRA evidence for hemodynamically significant stenosis, thrombosis or dissection. Electronically Signed: Mellisa Spence MD at 16:43 EDT , Service support , Head CTA 08/18/18 08:27 IMPRESSION: No demonstrated aneurysm or hemodynamically significant stenosis. Nonvisualization of the proximal segment of the right posterior cerebral artery. Patent right posterior communicating artery supplies the right posterior cerebral artery. Nonvisualization of the left posterior commuting artery. Electronically Signed: Cash Carrion DO at 11:31 EST Tel [phone], Service support , Neck CTA 08/18/18 08:27 IMPRESSION: 50-69% stenosis of the left ICA. Less than 50% stenosis of the right ICA. Electronically Signed: Azra Whitfield MD at 11:15 EST Tel , Service support , Procedures: EKG Summary of Care Provided: Hospitalist note: Discharge summary above reviewed and I agree with above discharge plan. Patient admitted because of dizziness and her symptoms resampling of vertigo. Initially, she was treated as a case of vertigo secondary to probable benign paroxysmal positional vertigo. A CT scan brain on admission revealed no acute findings. She was treated with Antivert and her symptoms did improve. Her routine blood work was unremarkable. EKG revealed normal sinus rhythm. Troponin was negative. Her vital signs were stable. MRI brain revealed nonspecific foci of apparent restricted diffusion in the basal ganglia, unusual for acute stroke and it is bilateral. MRA of the head revealed possible thrombosis of the left superior cerebellar artery. MRA of the neck was unremarkable. Neurology consulted and reviewed the MRA of the head and stated that there is no evidence of thrombosis of the left superior cerebellar artery. The neurologist reviewed the MRA of the head with another radiologist who also stated that no evidence of thrombosis of the left superior cerebellar artery. Neurology recommended CTA of the head and neck. CTA of the head revealed no aneurysm and no hemodynamically significant vascular disease or stenosis, patent right posterior communicating artery and nonvisualization of the left posterior communicating artery. CTA of the neck revealed 50-69% stenosis of the left internal carotid artery and less than 50% stenosis of the right internal carotid artery. Acute stroke ruled out. Her symptoms was not typical for TIA. Patient discharged home in a stable medical condition, discharged on aspirin and statins, discharged on Antivert as needed, plan is to follow-up with PCP in 1-2 weeks, follow-up with neurology in 4-6 weeks and follow-up with vascular surgery in 2 weeks. - Physical Exam General: Alert, Oriented x3, Cooperative, No apparent distress. HEENT: Atraumatic, PERRLA, EOMI. Neck: Supple, No JVD, Negative Carotid Bruits, Trachea Midline, Thyroid Normal. Lungs: Clear to auscultation, Normal air movement, No rhonchi, No wheeze, No rales. Cardiovascular: Regular rate, Regular Rhythm, Normal S1, Normal S2, PMI Normal. Abdomen: Bowel Sounds Present, Soft, Non Tender, Non-Distended, No Hepato-splenomegaly. Extremities: No clubbing, No cyanosis, No edema Skin: No rashes, No breakdown Neurological: Neuro grossly intact Vital Signs are stable. This note was generated with [employer] dictation software. It may contain incorrect words, spelling, and punctuation that were not noted in checking the note before signing. - Physical Exam Vital Signs Temp Pulse Resp BP Pulse Ox 98.9 F 83 16 123/63 H 95 08/18/18 08:12 08/18/18 08:12 08/18/18 08:12 08/18/18 08:12 08/18/18 08:12 Oxygen Delivery Method Room Air Weight: 131 lb 14.4 oz Body Mass Index (BMI) 24.1 Intake and Output for Last 24 Hours 08/16/18 08/17/18 08/18/18 23:59 23:59 22:59 Intake Total 1236 / 1236 1122 / 1122 Output Total 1200 / 1200 250 / 250 Balance 36 / 36 872 / 872 Laboratory Tests Past 24 Hrs 08/18/18 08/18/18 05:20 05:20 Arsenic Pending Lead Pending Pending Mercury Pending Meaningful Use Info Meaningful Use Diagnoses (Choose all that apply): None applicable Code Visit OBSV E&M: 15269 Observation care discharge
--- NOTE | 2018-08-18 12:25 | DS.PCM_ITS ---
Addendum entered and electronically signed by SAMARIA Crocker 08/18/18 12:27: Code Visit Imaging results: CT/Brain/Head without Contrast IMPRESSION: Chronic involutional changes of the brain. MRI/Brain without Contrast IMPRESSION: 1. Involutional changes of the brain, as described above. 2. Nonspecific foci of apparent restricted diffusion in the basal ganglia. The configuration is unusual for acute infarct and is bilateral. It is possible this is related to artifact. This apparent restricted diffusion could be unrelated to ischemia but secondary to cytotoxic edema. Is there concern for infection, or recent toxic exposure? MRI/MRA Head ONLY without Contrast IMPRESSION: 1. Possible thrombosis of the left superior cerebellar artery. The acuity of this finding is uncertain. 2. No MR evidence for aneurysm. MRI/MRA Neck WITH and W/O Contrast IMPRESSION: No MRA evidence for hemodynamically significant stenosis, thrombosis or dissection. CT/CTA Head W/WO Contrast IMPRESSION: No demonstrated aneurysm or hemodynamically significant stenosis. Nonvisualization of the proximal segment of the right posterior cerebral artery. Patent right posterior communicating artery supplies the right posterior cerebral artery. Nonvisualization of the left posterior commuting artery. CT/CTA Neck W/WO Contrast IMPRESSION: 50-69% stenosis of the left ICA. Less than 50% stenosis of the right ICA. Original Note: <Kevin Avilez - Last Filed: 08/18/18 12:26> Discharge Date and Diagnosis - Problem List Patient Problems: Active and Suspected Problems BPPV (benign paroxysmal positional vertigo) (Acute) Dizziness (Acute) Date of Admission: 08/16/18 Date of Discharge: 08/18/18 - Primary Discharge Diagnosis Active and Suspected Problems BPPV (benign paroxysmal positional vertigo) (Acute) Left ICA carotid stenosis HLD HTN Questionable Lead poisoning - Secondary Discharge Diagnosis Chronic Problems HTN (hypertension) (Chronic) Hospital Course and Treatment Imaging Results: 08/18/18 08:27 CTA Head W/WO Contrast [CT] Urgent CTA Neck W/WO Contrast [CT] Urgent Consults: Taz - neuro Operations: None Procedures: None Summary of Care Provided: Hospital course: The patient is a 68 year old F with pmhx of HTN, 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 It would occur with position changes and was better at rest with her eyes closed. She had a negative CT brain. She was admitted for vertigo and started on valium. She was significantly improved the following day but continued to have BL nystagmus L>R. MRI of the brainand MRA head and neck were obtained. There were some unusual findings as above and neuro was consulted to clarify. Lead and heavy metal blood levels were obtained and the results are pending at this time. She then underwent CTA head and neck. No significant thrombosis was found. She did have left ICA 50-69% stenosis and <50% stenosis right ICA. She was advised to take asa and statin. She was hesitant to start atorvastatin stating that she heard it hurts your liver. She denied a hx of taking it and having cramps or other issues with it. She was agreeable to trying a lower dose of it. She was discharged home in stable condition. Please follow up with PCP in 1-2 weeks. Follow up with Vascular Surgery 2 weeks. Follow up with Neuro 4-6 weeks. She needs a repeat MRI brain in 4-6 weeks. This patient was seen by Kevin Avilez PA-C under the supervision of Doctor Doug. [] Patient Problems: Active and Suspected Problems BPPV (benign paroxysmal positional vertigo) (Acute) Dizziness (Acute) - Physical Exam General: Alert, Oriented x3, Cooperative HEENT: Atraumatic, PERRLA, EOMI, Normocephalic, - - Bilateral nystagmus left greater than right Neck: Supple, No JVD, Negative Carotid Bruits Lungs: Clear to auscultation, Normal air movement Cardiovascular: Regular rate, No murmurs Abdomen: Bowel Sounds Present, Soft, Non Tender Extremities: No edema, Capillary Refill Less than 3 Seconds Skin: No rashes, No breakdown Musculoskeletal: No Tenderness to Palpation of Joints or Extremities Neurological: Cranial nerves II-XII grossly intact Psych/Mental Status: Normal Affect, Appropriate, Alert and oriented to time, place, person, mood and affect Vital Signs Temp Pulse Resp BP Pulse Ox 98.9 F 83 16 123/63 H 95 08/18/18 08:12 08/18/18 08:12 08/18/18 08:12 08/18/18 08:12 08/18/18 08:12 Oxygen Delivery Method Room Air Weight: 131 lb 14.4 oz Body Mass Index (BMI) 24.1 Intake and Output for Last 24 Hours 08/16/18 08/17/18 08/18/18 23:59 23:59 22:59 Intake Total 1236 / 1236 1122 / 1122 Output Total 1200 / 1200 250 / 250 Balance 36 / 36 872 / 872 Laboratory Tests Past 24 Hrs 08/18/18 08/18/18 05:20 05:20 Arsenic Pending Lead Pending Pending Mercury Pending Discharge Diet: Low fat/ Low Cholesterol, 4000 mg Sodium Diet Discharge Activity: Return to Normal Activity Home Medications: Medications to take at Discharge Amlodipine Besylate [Norvasc] 10 mg PO DAILY 08/16/18 Thyroid Pill 2 gm PO DAILY 08/16/18 traZODone [Desyrel] 25 - 50 mg PO QHS PRN 08/16/18 Aspirin [Aspirin, Baby] 81 mg PO DAILY@0800 tab.chew 08/18/18 Atorvastatin Calcium 40 mg PO DAILY #30 tab 08/18/18 Meclizine HCl [Antivert] 25 mg PO TID PRN PRN #21 tab 08/18/18 Following Prescrptions Were Given to Patient: Atorvastatin Calcium 40 mg PO DAILY #30 tab Meclizine HCl [Antivert] 25 mg PO TID PRN PRN #21 tab PRN Reason: Dizziness Primary Care Physician: Enrique Fischer III, MD [Primary Care Provider] - Please follow up with your Primary Care Physician in: 1-2 weeks Please Follow Up With: Evelin Mcghee MD When: 4-6 weeks Please Follow Up With: Bernabe Fischer MD - Carotid stenosis When: 2 weeks Disposition: Home Minutes spent on discharge:: 35 Patient Condition:: Stable Medical Necessity - Tobacco Use Smoking Status: Former smoker Tobacco Use: Cigarettes Meaningful Use Info Meaningful Use Diagnoses (Choose all that apply): None applicable <Mariela Camacho - Last Filed: 08/18/18 13:05> Discharge Date and Diagnosis - Primary Discharge Diagnosis Active and Suspected Problems #1 probable BPPV (benign paroxysmal positional vertigo) (Acute) #2 50-69% stenosis of the left internal carotid artery, less than 50% stenosis of the right internal carotid artery - Secondary Discharge Diagnosis Chronic Problems HTN (hypertension) (Chronic) Hospital Course and Treatment Imaging Results: 08/18/18 08:27 CTA Head W/WO Contrast [CT] Urgent CTA Neck W/WO Contrast [CT] Urgent Clinical Impression(s) from Imaging Studies Brain CT 08/16/18 15:29 IMPRESSION: Chronic involutional changes of the brain. Electronically Signed: Nelson Benito DO at 16:15 EDT Tel , Service support , Brain MRI 08/17/18 09:35 IMPRESSION: 1. Involutional changes of the brain, as described above. 2. Nonspecific foci of apparent restricted diffusion in the basal ganglia. The configuration is unusual for acute infarct and is bilateral. It is possible this is related to artifact. This apparent restricted diffusion could be unrelated to ischemia but secondary to cytotoxic edema. Is there concern for infection, or recent toxic exposure? N.B. : The above information has been verbally conveyed by Mellisa Spence MD to SAMARIA Crocker, on 08/17/2018 16:33:31 (ET). Electronically Signed: Mellisa Spence MD at 16:38 EDT , Service support , Head MRA 08/17/18 09:35 IMPRESSION: 1. Possible thrombosis of the left superior cerebellar artery. The acuity of this finding is uncertain. 2. No MR evidence for aneurysm. Electronically Signed: Mellisa Spence MD at 16:26 EDT , Service support , Neck MRA 08/17/18 09:35 IMPRESSION: No MRA evidence for hemodynamically significant stenosis, thrombosis or dissection. Electronically Signed: Mellisa Spence MD at 16:43 EDT , Service support , Head CTA 08/18/18 08:27 IMPRESSION: No demonstrated aneurysm or hemodynamically significant stenosis. Nonvisualization of the proximal segment of the right posterior cerebral artery. Patent right posterior communicating artery supplies the right posterior cerebral artery. Nonvisualization of the left posterior commuting artery. Electronically Signed: Cash Carrion DO at 11:31 EST Tel [phone], Service support , Neck CTA 08/18/18 08:27 IMPRESSION: 50-69% stenosis of the left ICA. Less than 50% stenosis of the right ICA. Electronically Signed: Azra Whitfield MD at 11:15 EST Tel , Service support , Procedures: EKG Summary of Care Provided: Hospitalist note: Discharge summary above reviewed and I agree with above discharge plan. Patient admitted because of dizziness and her symptoms resampling of vertigo. Initially, she was treated as a case of vertigo secondary to probable benign paroxysmal positional vertigo. A CT scan brain on admission revealed no acute findings. She was treated with Antivert and her symptoms did improve. Her routine blood work was unremarkable. EKG revealed normal sinus rhythm. Troponin was negative. Her vital signs were stable. MRI brain revealed nonspecific foci of apparent restricted diffusion in the basal ganglia, unusual for acute stroke and it is bilateral. MRA of the head revealed possible thrombosis of the left superior cerebellar artery. MRA of the neck was unremarkable. Neurology consulted and reviewed the MRA of the head and stated t hat there is no evidence of thrombosis of the left superior cerebellar artery. The neurologist reviewed the MRA of the head with another radiologist who also stated that no evidence of thrombosis of the left superior cerebellar artery. Neurology recommended CTA of the head and neck. CTA of the head revealed no aneurysm and no hemodynamically significant vascular disease or stenosis, patent right posterior communicating artery and nonvisualization of the left posterior communicating artery. CTA of the neck revealed 50-69% stenosis of the left internal carotid artery and less than 50% stenosis of the right internal carotid artery. Acute stroke ruled out. Her symptoms was not typical for TIA. Patient discharged home in a stable medical condition, discharged on aspirin and statins, discharged on Antivert as needed, plan is to follow-up with PCP in 1-2 weeks, follow-up with neurology in 4-6 weeks and follow-up with vascular surgery in 2 weeks. - Physical Exam General: Alert, Oriented x3, Cooperative, No apparent distress. HEENT: Atraumatic, PERRLA, EOMI. Neck: Supple, No JVD, Negative Carotid Bruits, Trachea Midline, Thyroid Normal. Lungs: Clear to auscultation, Normal air movement, No rhonchi, No wheeze, No rales. Cardiovascular: Regular rate, Regular Rhythm, Normal S1, Normal S2, PMI Normal. Abdomen: Bowel Sounds Present, Soft, Non Tender, Non-Distended, No Hepato-splenomegaly. Extremities: No clubbing, No cyanosis, No edema Skin: No rashes, No breakdown Neurological: Neuro grossly intact Vital Signs are stable. This note was generated with [employer] dictation software. It may contain incorrect words, spelling, and punctuation that were not noted in checking the note before signing. - Physical Exam Vital Signs Temp Pulse Resp BP Pulse Ox 98.9 F 83 16 123/63 H 95 08/18/18 08:12 08/18/18 08:12 08/18/18 08:12 08/18/18 08:12 08/18/18 08:12 Oxygen Delivery Method Room Air Weight: 131 lb 14.4 oz Body Mass Index (BMI) 24.1 Intake and Output for Last 24 Hours 08/16/18 08/17/18 08/18/18 23:59 23:59 22:59 Intake Total 1236 / 1236 1122 / 1122 Output Total 1200 / 1200 250 / 250 Balance 36 / 36 872 / 872 Laboratory Tests Past 24 Hrs 08/18/18 08/18/18 05:20 05:20 Arsenic Pending Lead Pending Pending Mercury Pending Meaningful Use Info Meaningful Use Diagnoses (Choose all that apply): None applicable Code Visit OBSV E&M: 62364 Observation care discharge
[2018-08-18 13:00] VITALS: BP 100/66; PULSE 77; RESP 16; O2SAT 95
[2018-08-21 09:22] LABS: Lead, Blood Adult 16+yrs 1 ug/dL (0-4)
[2018-08-21 09:42] LABS: Arsenic 7245 5 ug/L (2-23)
== END 2018-08-18 13:10 | disposition home or self-care (01) ==
LOC: ED 16:10 → MS3 17:25
PROVIDERS: Physician Assistant; Admitting Provider Family Medicine; Emergency Provider Emergency Medicine; Family Provider Family Medicine; PCP Family Medicine; Visit Provider Hospitalist
DX: H81.13 Benign paroxysmal vertigo, bilateral (principal); E78.5 Hyperlipidemia, unspecified; I10 Essential (primary) hypertension; R29.700 NIHSS score 0; Z87.891 Personal history of nicotine dependence; T56.0X1D Toxic effect of lead and its compounds, accidental (unintentional), subsequent encounter
CPT/HCPCS: 36415; 70450; 70496; 70498; 70544; 70549; 70551; 80048; 82175; 83655; 83825; 84484; 85025; 93005; 96360; 96361; 99218; 99284; A9585; J7030; J7040; Q9967; A4216; G0378

== ENCOUNTER 2018-09-18 10:30 | Outpatient (RCR) | payer MEDICARE, OTHER, SELFPAY ==
--- NOTE | 2019-01-20 09:33 | HP.PTDCNRP_ITS ---
HP - Discharge Summary (1) - Patient Information CHRISTA PARISH was seen in my office for initial evaluation on 09/04/18. The following Plan of Care was established for this patient: Initial Frequency: 1-2x /Week Initial Duration: 6 Weeks - Anticipated Interventions Patient/Client Instruction: Educate patient on: Plan of Care For the Purpose of:: To improve muscle performance and motor function, To improve ability to perform ADL's, To increase tolerance to activity/condition/position, To improve performance and independence with ADL's, To improve ability of physical actions for home/community/work/leisure, To im prove gait and locomotor functions, To improve balance Therapeutic Exercise to Include: Strength training, Endurance training, Balance training, Coordination, Postural training, Gait and locomotor training For the Purpose of:: To improve muscle performance and motor function, To improve ability to perform ADL's, To increase tolerance to activity/co ndition/position, To improve performance and independence with ADL's, To improve ability of physical actions for home/community/work/leisure, To improve gait and locomotor functions, To improve health of tissue, To improve balance This patient was last seen in our office 09/18/18. Pertinent comments regarding their Physical therapy will appear below: DC PT At this point I will be discontinuing this patient from physical therapy. I would be happy to see this patient again in the future if found appropriate by the physician. Thank you! Judy Crow, MPT
== END 2018-09-18 19:00 | disposition home or self-care (01) ==
LOC: PT 10:30
PROVIDERS: Family Provider Family Medicine; PCP Family Medicine; Referring Provider Otolaryngology; Visit Provider Otolaryngology
DX: R42 Dizziness and giddiness (principal); H53.2 Diplopia
CPT/HCPCS: 97110; 97162; 97530